=== PATIENT | female | born 1980 | race Caucasian/White ===

== ENCOUNTER 2017-10-11 13:31 | Outpatient (CLI) | payer OTHER | END 2017-10-11 13:32 | disposition EMS.NT | LOC: EMS 13:31 | PROVIDERS: ATTEND Surgery | DX: S61.411A Laceration without foreign body of right hand, initial encounter (principal); W25.XXXA Contact with sharp glass, initial encounter ==

== ENCOUNTER 2017-10-11 14:15 | Emergency (ER) | payer OTHER ==
[2017-10-11] MEDS ORDERED: HYDROmorphone 1 MG/ML CARPUJECT IM STA (14:38)
[2017-10-11] MEDS ORDERED: ONDANSETRON ODT 4 MG TABLET TL STA (14:38)
[2017-10-11] MEDS ORDERED: LORazepam 2 MG/ML VIAL IM STA (14:38)
[2017-10-11] MEDS ORDERED: BUPIVACAINE 0.5% PF 30 ML VIAL SUBQ STA ×2 (15:12→15:30)
[2017-10-11] MEDS ORDERED: BUPIVACAINE 0.5% PF 10 ML VIAL SUBQ STA ×2 (15:16→15:36)
--- NOTE | 2017-10-11 17:13 | ED Physician Documentation ---
PD HPI UPPER EXT INJURY - Stated complaint Stated Complaint: R HAND LAC - Chief complaint Chief Complaint: Ext Problem - History obtained from History obtained from: Patient, Family - History of Present Illness Location: Right, Hand, Finger (thumb) Type of injury: Laceration Where injury occurred: Home Timing - onset: Today Timing - duration: Minutes Timing - details: Abrupt onset, Still present Improved by: Rest, Immobilization Worsened by: Moving, Palpating Associated symptoms: Weakness, Numbness Contributing factors: No: Anticoagulated Similar symptoms before: Has not had sx before Recently seen: Not recently seen - Additonal information Additional information: 37-year-old female put her hand through the glass pane of the door and lacerated her hand deeply. She has some loss of sensation to the distal palm she is not able to move her thumb completely normally she has a laceration over the distal palm she is able to move her fingers without difficulty and has normal sensation on the fingers. Review of Systems Constitutional: denies: Fever Eyes: denies: Decreased vision Ears: denies: Ear pain Nose: denies: Congestion Throat: denies: Sore throat Cardiac: denies: Chest pain / pressure Respiratory: denies: Dyspnea, Cough GI: denies: Abdominal Pain, Nausea, Vomiting : denies: Dysuria, Frequency Skin: reports: Laceration (s). denies: Rash Musculoskeletal: reports: Extremity pain. denies: Neck pain, Back pain Neurologic: reports: Focal weakness, Numbness. 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 HEENT: Myringotomy (tubes) - Present Medications Home Medications: Ambulatory Orders Medication Instructions Recorded Confirmed Cephalexin [Keflex] 500 mg PO TID #21 capsule 10/11/17 HYDROcod/ACETAM 5/325 [[place] 5/325] 1 - 2 ea PO Q6H PRN #15 tablet 10/11/17 - Allergies Allergies/Adverse Reactions: Allergies Allergy/AdvReac Type Severity Reaction Status Date / Time No Known Drug Allergies Allergy Verified 10/11/17 14:32 - Social History Does the pt smoke?: Yes Smoking Status: Current every day smoker Does the pt drink ETOH?: Yes ETOH Use: Wine Does the pt have substance abuse?: Yes Substance Use and Type: Marijuana - Immunizations Immunizations are current?: Yes - POLST Patient has POLST: No PD ED PE NORMAL - Vitals Vital signs reviewed: Yes (Normal) - General General: No acute distress, Well developed/nourished, Other (Anxious 37-year- old female) - HEENT HEENT: Atraumatic, PERRL, EOMI - Respiratory Respiratory: No respiratory distress - Derm Derm: Normal color, Warm and dry, No rash - Extremities Extremities: No deformity, Other (There is a deep stellate laceration over the thenar eminence of the right hand that extends to the proximal flange and involves the base of the abductor pollicis flexor pollicis brevis and abductor pollicis brevis near their insertion. There is decreased sensation distally on the radial surface of the thumb. Vascular supply does not appear to be affected. There is a second laceration on the palmar surface of the hand overlying the distal second and third metacarpals and extending into the webspace of the first and second fingers and up the ulnar surface of the index finger. This laceration does not involve deeper structures and distal neurovascular components are intact.) - Neuro Neuro: Alert and oriented X 3 Eye Opening: Spontaneous Motor: Obeys Commands Verbal: Oriented GCS Score: 15 - Psych Psych: Normal mood, Normal affect Results - Vitals Vitals: Vital Signs - 24 hr 10/11/17 10/11/17 14:19 15:19 Temperature 37.1 C Heart Rate 91 50 L Respiratory 17 18 Rate Blood Pressure 113/72 O2 Saturation 99 100 Oxygen O2 Source Room air Procedures - Laceration (location) Right hand Wound type: Stellate, Into muscle Neurovascular status: Vascular intact, Other (deficit of adduction and distal sensation to the right thumb over the radial surface.) Anesthesia: Marcaine 0.5% Wound Preparation: Hibiclens, Irrigated copiously NS, Wound explored, To the base, Multiple flaps aligned Skin layer closure: Nylon, Interrupted, Size #-0 - enter number (4-0 to the thumb lac 5-0 to the hand lac.) Other: Patient tolerated well, No complications, Neurovascular intact, Dressing applied, Tetanus UTD Complexity: Intermediate PD MEDICAL DECISION MAKING - ED course Complexity details: reviewed old records, re-evaluated patient, considered differential, d/w patient, d/w family ED course: 37-year-old female with a hand laceration involving the flexor tendons of the thumb has her wound cleaned numbed and the wound over the thumb portion is closed with loose approximation and the laceration over the hand over the palmar surface is closed definitively.Hand surgery at [facility] and at the [facility] were consulted in the case both recommended cleaning and temporary reapproximation with follow-up in clinic for definitive repair. Departure - Departure Disposition: 01 Home, Self Care Clinical Impression: Laceration of right hand involving tendon Qualifiers: Encounter type: initial encounter Qualified Code(s): S61.411A - Laceration without foreign body of right hand, initial encounter; S66.921A - Laceration of unspecified muscle, fascia and tendon at wrist and hand level, right hand, initial encounter; S66.921A - Laceration of unspecified muscle, fascia and tendon at wrist and hand level, right hand, initial encounter Condition: Stable Instructions: ED Laceration Hand, Laceration Flexor Tendon Tx Follow-Up: Justin Su MD [Physician No Access] - [facility] [Provider Group] Prescriptions: Cephalexin [Keflex] 500 mg PO TID #21 capsule HYDROcod/ACETAM 5/325 [[place] 5/325] 1 - 2 ea PO Q6H PRN #15 tablet PRN Reason: Pain
[2017-10-11 17:38] VITALS: BP 98/61
== END 2017-10-11 17:37 | disposition home or self-care (01) ==
LOC: ED 14:15
DX: S61.411A Laceration without foreign body of right hand, initial encounter (principal); S66.021A Laceration of long flexor muscle, fascia and tendon of right thumb at wrist and hand level, initial encounter; W25.XXXA Contact with sharp glass, initial encounter; Y93.89 Activity, other specified; Y92.009 Unspecified place in unspecified non-institutional (private) residence as the place of occurrence of the external cause; F17.200 Nicotine dependence, unspecified, uncomplicated
CPT/HCPCS: 12044; 96372; 99283; J1170; J2060; Q0162; 12004

== ENCOUNTER 2017-10-13 13:38 | Emergency (ER) | payer OTHER ==
--- NOTE | 2017-10-13 14:36 | ED Physician Documentation ---
PD HPI WOUND RECHECK - Stated complaint Stated Complaint: WOUND CK/DRESSING CHANGE - Chief complaint Chief Complaint: Wound - Histroy obtained from History obtained from: Patient, Family - History of Present Illness Location: Right Hand Timing - onset: How many days ago (2) Associated symptoms: Pain. No: Fever, Redness, Swelling, Drainage Similar symptoms before: Has not had sx before Recently seen: Emergency Dept - Additional information Additional information: 37-year-old female put her hand through a pane of glass on a door 2 days ago and lacerated her hand severely. She has tendon laceration to the stump of the adductors on the right thumb. She has not been able to get the dressing off without pain and so she has come to the emergency department for dressing change. She is a nervous person who is mortified at the site of blood. She had skin re-approximated and loosely sutured to the thumb laceration with expectation of seeing the hand surgeon this week for repair of the tendons. A second laceration at the base of the index finger was definatively repaired. She has no specific complaints except that she cannot get the dressing off without pain. Review of Systems Constitutional: denies: Fever, Chills Respiratory: denies: Cough GI: denies: Vomiting Skin: reports: Laceration (s). denies: Rash Musculoskeletal: reports: Extremity pain Neurologic: reports: Focal weakness, Numbness. 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 HEENT: Myringotomy (tubes) - Present Medications Home Medications: Ambulatory Orders Medication Instructions Recorded Confirmed Cephalexin [Keflex] 500 mg PO TID #21 capsule 10/11/17 HYDROcod/ACETAM 5/325 [[place] 5/325] 1 - 2 ea PO Q6H PRN #15 tablet 10/11/17 - Allergies Allergies/Adverse Reactions: Allergies Allergy/AdvReac Type Severity Reaction Status Date / Time No Known Drug Allergies Allergy Verified 10/11/17 14:32 - Social History Does the pt smoke?: Yes Smoking Status: Current every day smoker Does the pt drink ETOH?: Yes Does the pt have substance abuse?: Yes - Immunizations Immunizations are current?: Yes - POLST Patient has POLST: No PD ED PE NORMAL - Vitals Vital signs reviewed: Yes (normal ) - General General: Alert and oriented X 3, Well developed/nourished, Other (The patient appears anxious ) - HEENT HEENT: Atraumatic, PERRL, EOMI - Respiratory Respiratory: No respiratory distress - Derm Derm: Normal color, Warm and dry, No rash - Extremities Extremities: No deformity, No edema, Other (The wounds appear clean and without inflammation. There is no drainage. Deficit remains. ) - Neuro Neuro: Normal speech Eye Opening: Spontaneous Motor: Obeys Commands Verbal: Oriented GCS Score: 15 - Psych Psych: Normal affect, Other (mood is anxious .) Results - Vitals Vitals: Vital Signs - 24 hr 10/13/17 13:40 Temperature 36.9 C Heart Rate 77 Respiratory 18 Rate Blood Pressure 113/68 O2 Saturation 96 Oxygen O2 Source Room air PD MEDICAL DECISION MAKING - ED course Complexity details: re-evaluated patient, considered differential, d/w patient, d/w family ED course: 37-year-old female with a tendon laceration to the hand will need to see the hand surgeon this week and her wound is dressed. There is no evidence of infection or inflammation today. Departure - Departure Disposition: 01 Home, Self Care Clinical Impression: Laceration of right hand involving tendon Qualifiers: Encounter type: subsequent encounter Qualified Code(s): S61.411D - Laceration without foreign body of right hand, subsequent encounter; S66.921D - Laceration of unspecified muscle, fascia and tendon at wrist and hand level, right hand, subsequent encounter; S66.921D - Laceration of unspecified muscle, fascia and tendon at wrist and hand level, right hand, subsequent encounter Condition: Stable Instructions: ED Laceration Hand Follow-Up: Sid matthews MD [Physician No Access] - Ben Ledezma JR, MD [Physician No Access] - Justin Su MD [Physician No Access] -
[2017-10-13 15:00] VITALS: BP 104/73
== END 2017-10-13 15:15 | disposition home or self-care (01) ==
LOC: ED 13:38
DX: S61.411D Laceration without foreign body of right hand, subsequent encounter (principal); S66.921D Laceration of unspecified muscle, fascia and tendon at wrist and hand level, right hand, subsequent encounter; W25.XXXD Contact with sharp glass, subsequent encounter
CPT/HCPCS: 99283

== ENCOUNTER 2019-09-14 16:07 | Emergency (ER) | payer OTHER ==
--- NOTE | 2019-09-14 16:18 | ED Physician Documentation ---
PD HPI MHE - Stated complaint Stated Complaint: MHE / SI - History obtained from History obtained from: Patient (39-year-old woman with history of PTSD and nonepileptic seizures presents with an apparent suicidal attempt overdose last night. The story has been somewhat variable but evidently took some Tylenol PM last night with potential suicidal ideation and is brought in by [facility] deputy for mental health evaluation. Patient does not feel like anything is significantly wrong and does not want anything done. 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 HEENT: Myringotomy (tubes) - Present Medications Home Medications: Ambulatory Orders Medication Instructions Recorded Confirmed Cephalexin [Keflex] 500 mg PO TID #21 capsule 10/11/17 HYDROcod/ACETAM 5/325 [[place] 5/325] 1 - 2 ea PO Q6H PRN #15 tablet 10/11/17 - Allergies Allergies/Adverse Reactions: Allergies Allergy/AdvReac Type Severity Reaction Status Date / Time No Known Drug Allergies Allergy Verified 10/11/17 14:32 - Social History Does the pt smoke?: Yes Smoking Status: Current every day smoker Does the pt drink ETOH?: Yes Does the pt have substance abuse?: Yes - Immunizations Immunizations are current?: Yes - POLST Patient has POLST: No PD ED PE NORMAL - Vitals Vital signs reviewed: Yes - General General: Alert and oriented X 3, Other (Tearful with poor eye contact) - HEENT HEENT: PERRL, Other (Somewhat dilated pupils) - Neck Neck: Supple, no meningeal sign, No bony TTP - Cardiac Cardiac: RRR, No murmur - Respiratory Respiratory: No respiratory distress, Clear bilaterally - Abdomen Abdomen: Normal bowel sounds, Soft, Non tender - Back Back: No CVA TTP, No spinal TTP - Derm Derm: Normal color, No rash - Extremities Extremities: No edema, No calf tenderness / cord - Neuro Neuro: Alert and oriented X 3, No motor deficit, No sensory deficit, Normal speech - Psych Psych: Other (Tearful) Results - Vitals Vitals: Vital Signs - 24 hr 09/14/19 09/14/19 16:16 20:40 Temperature 37.2 C 36.8 C Heart Rate 103 H 80 Respiratory 18 28 H Rate Blood Pressure 130/112 H 111/69 O2 Saturation 99 98 Oxygen O2 Source Room air - Labs Labs: Laboratory Tests 09/14/19 09/14/19 09/14/19 16:18 16:18 16:18 WBC 5.9 RBC 4.45 Hgb 13.7 Hct 40.9 MCV 91.9 MCH 30.8 MCHC 33.5 RDW 12.9 Plt Count 299 MPV 10.5 Neut # (Auto) 4.4 Lymph # (Auto) 1.1 L Mathews # (Auto) 0.3 Eos # (Auto) 0.0 Baso # (Auto) 0.0 Absolute Nucleated RBC 0.00 Nucleated RBC % 0.0 Sodium 134 L Potassium 3.7 Chloride 101 Carbon Dioxide 26 Anion Gap 7.0 BUN 11 Creatinine 0.7 Estimated GFR (MDRD) 94 Glucose 110 H Calcium 8.9 Total Bilirubin 0.6 AST 14 ALT 10 Alkaline Phosphatase 40 L Total Protein 7.4 Albumin 4.3 Globulin 3.1 Albumin/Globulin Ratio 1.4 Lipase 22 TSH 0.36 Urine Color Urine Clarity Urine pH Ur Specific [place] Urine Protein Urine Glucose (UA) Urine Ketones Urine Occult Blood Urine Nitrite Urine Bilirubin Urine Urobilinogen Ur Leukocyte Esterase Ur Microscopic Review Urine Culture Comments Urine HCG, Qual Salicylates < 6.0 Urine Opiates Screen Ur Oxycodone Screen Urine Methadone Screen Ur Propoxyphene Screen Acetaminophen < 10 L Ur Barbiturates Screen Ur Tricyclics Screen Ur Phencyclidine Scrn Ur Amphetamine Screen U Methamphetamines Scrn U Benzodiazepines Scrn Urine Cocaine Screen U Cannabinoids Screen Ethyl Alcohol < 5.0 09/14/19 09/14/19 16:35 16:35 WBC RBC Hgb Hct MCV MCH MCHC RDW Plt Count MPV Neut # (Auto) Lymph # (Auto) Mathews # (Auto) Eos # (Auto) Baso # (Auto) Absolute Nucleated RBC Nucleated RBC % Sodium Potassium Chloride Carbon Dioxide Anion Gap BUN Creatinine Estimated GFR (MDRD) Glucose Calcium Total Bilirubin AST ALT Alkaline Phosphatase Total Protein Albumin Globulin Albumin/Globulin Ratio Lipase TSH Urine Color YELLOW Urine Clarity CLEAR Urine pH 6.0 Ur Specific [place] >=1.030 H >=1.030 H Urine Protein NEGATIVE Urine Glucose (UA) NEGATIVE Urine Ketones NEGATIVE Urine Occult Blood NEGATIVE Urine Nitrite NEGATIVE Urine Bilirubin NEGATIVE Urine Urobilinogen 0.2 (NORMAL) Ur Leukocyte Esterase NEGATIVE Ur Microscopic Review NOT INDICATED Urine Culture Comments NOT INDICATED Urine HCG, Qual NEGATIVE Salicylates Urine Opiates Screen NEGATIVE Ur Oxycodone Screen NEGATIVE Urine Methadone Screen NEGATIVE Ur Propoxyphene Screen NEGATIVE Acetaminophen Ur Barbiturates Screen NEGATIVE Ur Tricyclics Screen NEGATIVE Ur Phencyclidine Scrn NEGATIVE Ur Amphetamine Screen NEGATIVE U Methamphetamines Scrn NEGATIVE U Benzodiazepines Scrn NEGATIVE Urine Cocaine Screen NEGATIVE U Cannabinoids Screen POSITIVE H Ethyl Alcohol PD MEDICAL DECISION MAKING - ED course ED course: 39-year-old woman brought in by [facility]'s deputy for mental health evaluation. She was resistant to help and there for the DCR was called and saw her and released her for outpatient treatment. Departure - Departure Disposition: 01 Home, Self Care Clinical Impression: Depression Condition: Good Record reviewed to determine appropriate education?: Yes Comments: Downtime Discharge instructions for [facility] Time discharged 8:10 PM September 14, 2019 Attending physician Landry Montejo MD You were seen today by the designated crisis sponsor for concern for suicidal ideation. She is cleared you for outpatient treatment. Return anytime for new or worsening symptoms. Follow-up with your counselor tomorrow as scheduled.
[2019-09-14 16:31] LABS: BASOPHILS % (AUTO) 0.5 %; EOSINOPHILS % (AUTO) 0.2 %; HGB - HEMOGLOBIN 13.7 g/dL (12.0-16.0); LYMPHOCYTES # (AUTO) 1.1 10^3/uL (1.5-3.5); LYMPHOCYTES % (AUTO) 18.6 %; MEAN CORPUSCULAR HEMOGLOBIN 30.8 pg (27.0-31.0); MEAN CORPUSCULAR HGB CONC 33.5 g/dL (32.0-36.0); MEAN CORPUSCULAR VOLUME 91.9 fL (81.0-99.0); MEAN PLATELET VOLUME 10.5 fL (7.9-10.8); MONOCYTES # (AUTO) 0.3 10^3/uL (0.0-1.0); MONOCYTES % (AUTO) 5.5 %; NEUTROPHILS # (AUTO) 4.4 10^3/uL (1.5-6.6); NEUTROPHILS % (AUTO) 75.2 %; PLT - PLATELET COUNT 299 10^3/uL (130-450); RED BLOOD COUNT 4.45 10^6/uL (4.20-5.40); RED CELL DISTRIBUTION WIDTH 12.9 % (12.0-15.0); WHITE BLOOD COUNT 5.9 x10^3/uL (4.8-10.8)
[2019-09-14 16:39] LABS: ACETAMINOPHEN < 10 ug/mL (10-30); ALBUMIN 4.3 g/dL (3.2-5.5); ALBUMIN/GLOBULIN RATIO 1.4 (1.0-2.2); ALKALINE PHOSPHATASE 40 IU/L (42-121); ALT ALANINE AMINOTRANSFERASE 10 IU/L (10-60); AST ASPARTATE AMINOTRANSFERASE 14 IU/L (10-42); BILIRUBIN,TOTAL 0.6 mg/dL (0.2-1.0); BUN - BLOOD UREA NITROGEN 11 mg/dL (6-20); CALCIUM 8.9 mg/dL (8.5-10.3); CARBON DIOXIDE - CO2 26 mmol/L (21-32); CHLORIDE 101 mmol/L (101-111); CREATININE 0.7 mg/dL (0.4-1.0); GLUCOSE 110 mg/dL (70-100); LIPASE 22 U/L (22-51); SALICYLATE < 6.0 mg/dL; SODIUM 134 mmol/L (135-145); TOTAL PROTEIN 7.4 g/dL (6.7-8.2)
[2019-09-14 16:42] LABS: MUDS CUTOFF CONCENTRATIONS CUTOFF CONC BELOW:
[2019-09-14 16:46] LABS: BILIRUBIN,URINE NEGATIVE (NEGATIVE); GLUCOSE, URINE (UA) NEGATIVE (NEGATIVE); KETONES,URINE (UA) NEGATIVE (NEGATIVE); LEUKOCYTE ESTERASE, URINE NEGATIVE (NEGATIVE); NITRITE,URINE NEGATIVE (NEGATIVE); OCCULT BLOOD,URINE NEGATIVE (NEGATIVE); PROTEIN,URINE NEGATIVE (NEGATIVE); UROBILINOGEN,URINE 0.2 (NORMAL) E.U./dL (NORMAL)
[2019-09-14 16:47] LABS: CLARITY,URINE CLEAR (CLEAR)
[2019-09-14 16:49] LABS: HCG UR QUAL NEGATIVE
[2019-09-14 16:56] LABS: AMPHETAMINE SCREEN,URINE NEGATIVE (NEGATIVE); BENZODIAZEPINES SCREEN, URINE NEGATIVE (NEGATIVE); COCAINE SCREEN URINE NEGATIVE (NEGATIVE); METHADONE SCREEN, URINE NEGATIVE (NEGATIVE); METHAMPHETAMINES SCREEN, URINE NEGATIVE (NEGATIVE); OPIATE SCREEN, URINE NEGATIVE (NEGATIVE); OXYCODONE SCREEN, URINE NEGATIVE (NEGATIVE); PROPOXYPHENE SCREEN, URINE NEGATIVE (NEGATIVE); TRICYCLIC ANTIDEPRESSANT,URINE NEGATIVE (NEGATIVE)
[2019-09-14 21:39] VITALS: BP 111/69
== END 2019-09-14 20:50 | disposition home or self-care (01) ==
LOC: ED 16:07
DX: F32.9 Major depressive disorder, single episode, unspecified (principal); F17.200 Nicotine dependence, unspecified, uncomplicated
CPT/HCPCS: 36415; 80053; 80306; 80307; 80320; 80329; 81001; 81003; 81025; 83690; 84443; 85025; 87086; 99283